=== PATIENT | female | born 1975 | race Two or more races ===

== ENCOUNTER → 2018-05-14 | Outpatient (CLI) | payer OTHER ==
[2018-05-14 13:51] LABS: ABSOLUTE BASOPHILS # (AUTO) 0.1 10^3/uL (0.0-0.2); ABSOLUTE EOSINOPHILS # (AUTO) 0.1 10^3/uL (0.0-0.6); ABSOLUTE LYMPHOCYTES (AUTO) 1.7 10^3/uL (0.5-4.7); ABSOLUTE MONOCYTES (AUTO) 0.4 10^3/uL (0.1-1.4); ABSOLUTE NEUT (AUTO) 7.9 10^3/uL (1.7-8.2); BASOPHILS % (AUTO) 0.8 % (0-2); EOSINOPHILS % (AUTO) 1.3 % (0-6); HEMATOCRIT 34.9 % (36.0-47.0); HEMOGLOBIN 12.8 g/dL (12.0-15.5); LYMPHOCYTES % (AUTO) 16.7 % (13-45); MEAN CORPUSCULAR HEMOGLOBIN 31.1 pg (27.0-33.4); MEAN CORPUSCULAR HGB CONC 36.6 g/dL (32.0-36.0); MEAN CORPUSCULAR VOLUME 85 fl (80-97); MONOCYTES % (AUTO) 3.5 % (3-13); PLATELET COUNT 220 10^3/uL (150-450); RED BLOOD COUNT 4.11 10^6/uL (3.72-5.28); RED CELL DISTRIBUTION WIDTH 15.7 % (11.5-14.0); SEGMENTED NEUTROPHILS % (AUTO) 77.7 % (42-78); TOTAL CELLS COUNTED % (AUTO) 100 %; WHITE BLOOD COUNT 10.2 10^3/uL (4.0-10.5)
[2018-05-14 14:16] LABS: ALANINE AMINOTRANSFERASE 40 U/L (9-52); ALBUMIN 4.6 g/dL (3.5-5.0); ALKALINE PHOSPHATASE 71 U/L (38-126); ANION GAP 12 (5-19); ASPARTATE AMINO TRANSFERASE 28 U/L (14-36); BILIRUBIN,DIRECT 1.3 mg/dL (0.0-0.4); BILIRUBIN,TOTAL 5.3 mg/dL (0.2-1.3); BLOOD UREA NITROGEN 7 mg/dL (7-20); CALCIUM 9.6 mg/dL (8.4-10.2); CARBON DIOXIDE 27 mmol/L (22-30); CHLORIDE 99 mmol/L (98-107); GLUCOSE 129 mg/dL (75-110); POTASSIUM 3.8 mmol/L (3.6-5.0); SODIUM 138.3 mmol/L (137-145); TOTAL PROTEIN 7.6 g/dL (6.3-8.2)
--- NOTE | 2018-05-14 15:09 | RADIOLOGY REPORT (SQ) ---
EXAM DESCRIPTION: U/S NON-OB PELVIS W/O DOP; U/S NON-OB PELVIS TV W/O DOP COMPLETED DATE/TIME: 05/14/2018 2:58 pm REASON FOR STUDY: LOWER ABD PAIN (R10.30) R10.30 LOWER ABDOMINAL PAIN, UNSPECIFIED COMPARISON: None. TECHNIQUE: Dynamic and static grayscale images acquired of the pelvis via transabdominal and transva ginal approach and recorded on PACS. Additional selected color Doppler and spectral images recorded. LIMITATIONS: None. FINDINGS: UTERUS: Multiple fibroids the largest 6 cm. ENDOMETRIAL STRIPE: Generalized thickening. CERVIX: Nabothian cyst. RIGHT OVARY AND DOPPLER: Normal size. No worrisome masses. Normal arterial vascular flow without evid ence for torsion. LEFT OVARY AND DOPPLER: Normal size. No worrisome masses. Normal arterial vascular flow without evid ence for torsion. FREE FLUID: None noted. OTHER: No other significant finding. MEASUREMENTS: UTERUS: 14.3 x 9.4 x 7.2 cm ENDOMETRIAL STRIPE: 22 mm RIGHT OVARY: 4.3 x 3.1 x 2.8 cm LEFT OVARY: 4.4 x 2.8 x 2.4 cm IMPRESSION: Enlarged fibroid uterus. TECHNICAL DOCUMENTATION: JOB ID: [id number] [employer]- All Rights Reserved Rev-12/27 Reading location - IP/workstation name: [email or web address]
--- NOTE | 2018-05-14 15:09 | RADIOLOGY REPORT (SQ) ---
EXAM DESCRIPTION: U/S NON-OB PELVIS W/O DOP; U/S NON-OB PELVIS TV W/O DOP COMPLETED DATE/TIME: 05/14/2018 2:58 pm REASON FOR STUDY: LOWER ABD PAIN (R10.30) R10.30 LOWER ABDOMINAL PAIN, UNSPECIFIED COMPARISON: None. TECHNIQUE: Dynamic and static grayscale images acquired of the pelvis via transabdominal and transva ginal approach and recorded on PACS. Additional selected color Doppler and spectral images recorded. LIMITATIONS: None. FINDINGS: UTERUS: Multiple fibroids the largest 6 cm. ENDOMETRIAL STRIPE: Generalized thickening. CERVIX: Nabothian cyst. RIGHT OVARY AND DOPPLER: Normal size. No worrisome masses. Normal arterial vascular flow without evid ence for torsion. LEFT OVARY AND DOPPLER: Normal size. No worrisome masses. Normal arterial vascular flow without evid ence for torsion. FREE FLUID: None noted. OTHER: No other significant finding. MEASUREMENTS: UTERUS: 14.3 x 9.4 x 7.2 cm ENDOMETRIAL STRIPE: 22 mm RIGHT OVARY: 4.3 x 3.1 x 2.8 cm LEFT OVARY: 4.4 x 2.8 x 2.4 cm IMPRESSION: Enlarged fibroid uterus. TECHNICAL DOCUMENTATION: JOB ID: [id number] [employer]- All Rights Reserved Rev-12/27 Reading location - IP/workstation name: [email or web address]
== END ==
LOC: RAD 13:19
PROVIDERS: ATTEND Nurse Practitioner Family
DX: D25.9 Leiomyoma of uterus, unspecified (principal); R10.30 Lower abdominal pain, unspecified
CPT/HCPCS: 36415; 76830; 76856; 80053; 85025

== ENCOUNTER 2018-08-14 05:20 | Inpatient (IN) | payer OTHER ==
[2018-08-13 10:09] LABS: APPEARANCE,URINE CLEAR; BILIRUBIN,URINE NEGATIVE (NEGATIVE); COLOR,URINE YELLOW; GLUCOSE, URINE NEGATIVE (NEGATIVE); KETONES,URINE NEGATIVE (NEGATIVE); LEUKOCYTE ESTERASE,URINE NEGATIVE (NEGATIVE); NITRITE,URINE NEGATIVE (NEGATIVE); PROTEIN,URINE NEGATIVE (NEGATIVE); URINE SPECIFIC GRAVITY 1.015; UROBILINOGEN,URINE NEGATIVE mg/dL (<2.0)
[2018-08-13 10:10] LABS: HEMATOCRIT 36.7 % (36.0-47.0); MEAN CORPUSCULAR HEMOGLOBIN 30.5 pg (27.0-33.4); MEAN CORPUSCULAR HGB CONC 35.6 g/dL (32.0-36.0); MEAN CORPUSCULAR VOLUME 86 fl (80-97); PLATELET COUNT 228 10^3/uL (150-450); RED BLOOD COUNT 4.28 10^6/uL (3.72-5.28); RED CELL DISTRIBUTION WIDTH 15.5 % (11.5-14.0); WHITE BLOOD COUNT 8.1 10^3/uL (4.0-10.5)
[2018-08-13 10:35] LABS: ALANINE AMINOTRANSFERASE 50 U/L (9-52); ALBUMIN 4.4 g/dL (3.5-5.0); ALKALINE PHOSPHATASE 69 U/L (38-126); ANION GAP 10 (5-19); ASPARTATE AMINO TRANSFERASE 44 U/L (14-36); BILIRUBIN,DIRECT 0.3 mg/dL (0.0-0.4); BLOOD UREA NITROGEN 12 mg/dL (7-20); CALCIUM 9.3 mg/dL (8.4-10.2); CARBON DIOXIDE 26 mmol/L (22-30); CHLORIDE 102 mmol/L (98-107); GLUCOSE 159 mg/dL (75-110); SODIUM 138.2 mmol/L (137-145); TOTAL PROTEIN 7.1 g/dL (6.3-8.2)
[~2018-08-14 05:20] MED LIST: CEFAZOLIN 1 GM/D5W RTU 1 GM/50 ML RTUPB IV PRN; LACTATED RINGERS 1000 ML IV PRN; LIDOCAINE 0.5% INJ-PF (5 MG/ML) 50 ML SDV SUBCUT PRN; MAGNESIUM CITRATE 296 ML BOTTLE PO ONE
[2018-08-14] MEDS ORDERED: CEFAZOLIN 1 GM/D5W RTU 1 GM/50 ML RTUPB IV ONE (05:30)
[2018-08-14] MEDS ORDERED: HYDROMORPHONE HCL INJ/PF 2 MG/ML AMPULE ONE (06:40)
[2018-08-14] MEDS ORDERED: PROPOFOL INJ 200 MG/20 ML VIAL IV ONE (06:41)
[2018-08-14] MEDS ORDERED: MIDAZOLAM 2 MG/2 ML INJ ONE (06:41)
[2018-08-14] MEDS ORDERED: FENTANYL CITRATE INJ/PF 100 MCG/2 ML AMPUL ONE (06:41)
[2018-08-14] MEDS ORDERED: ACETAMINOPHEN 0 MG/0 ML RTUPB IV ONE (06:41)
[2018-08-14] MEDS ORDERED: GLYCOPYRROLATE 1 MG/5 ML SYRINGE ONE (08:35)
[2018-08-14] MEDS ORDERED: NEOSTIGMINE METHYLSULFATE 10 MG/10 ML VIAL ONE (08:35)
[2018-08-14] MEDS ORDERED: ONDANSETRON HCL INJ/PF 4 MG/2 ML SDV ONE (08:35)
[2018-08-14] MEDS ORDERED: VECURONIUM BROMIDE INJ 10 MG VIAL IV ONE (08:35)
[2018-08-14] MEDS ORDERED: LIDOCAINE 2% INJ-PF (20 MG/ML) 2 ML AMPUL ONE (08:35)
[2018-08-14] MEDS ORDERED: SUCCINYLCHOLINE CHLORIDE INJ 200 MG/10 ML VIAL ONE (08:35)
[2018-08-14] MEDS ORDERED: DEXAMETHASONE SOD PHOSPHATE INJ 4 MG/1 ML VIAL ONE (08:35)
[2018-08-14] MEDS ORDERED: FENTANYL CITRATE INJ/PF 250 MCG/5 ML AMPULE ONE (08:50)
[2018-08-14] MEDS ORDERED: VASOPRESSIN INJ 20 UNIT/1 ML VIAL ONE (08:52)
[2018-08-14] MEDS ORDERED: MEPERIDINE HCL/PF INJ 25 MG/1 ML DISP.SYRIN IV PRN (09:18)
[2018-08-14] MEDS ORDERED: PROMETHAZINE HCL INJ 25 MG/1 ML VIAL IV PRN (09:18)
[2018-08-14] MEDS ORDERED: MORPHINE SULFATE 10 MG/ML INJ IV PRN ×2 (09:18→14:18)
[2018-08-14] MEDS ORDERED: DIPHENHYDRAMINE HCL 50 MG/ML VIAL IV PRN (09:18)
[2018-08-14] MEDS ORDERED: FENTANYL CITRATE INJ/PF 100 MCG/2 ML AMPUL IV PRN ×3 (09:18)
[2018-08-14] MEDS ORDERED: CEFAZOLIN INJ 1 GM VIAL ONE (10:29)
[2018-08-14] MEDS ORDERED: IBUPROFEN 800 MG in NORMAL SALINE 250 ML IV ONE (12:00)
[2018-08-14] MEDS ORDERED: PROMETHAZINE HCL INJ 25 MG/1 ML VIAL ONE (12:12)
[2018-08-14] MEDS ORDERED: IBUPROFEN 800 MG TABLET PO PRN (14:19)
--- NOTE | 2018-08-14 17:07 | OPERATIVE REPORT E ---
Operative Report NAME: SÁNCHEZ BARRAGAN : 1975 AGE: 42Y DATE OF SURGERY: 08/14/2018 ROOM: 225 PREOPERATIVE DIAGNOSES: 1. SYMPTOMATIC FIBROIDS. 2. ANEMIA. 3. ABNORMAL UTERINE BLEEDING AND PELVIC PAIN. POSTOPERATIVE DIAGNOSES: 1. SYMPTOMATIC FIBROIDS. 2. ANEMIA. 3. ABNORMAL UTERINE BLEEDING AND PELVIC PAIN. 4. APPARENT ENDOMETRIOSIS. 5. PELVIC ADHESIVE DISEASE. OPERATION: Total abdominal hysterectomy with left salpingo-oophorectomy and right salpingectomy and right ovarian cystectomy, and lysis of adhesions. SURGEON: LUCILLE CALIXTO M.D. MEMBER OF CONGRESS: JANETT DUBOIS M.D. ANESTHESIA: Robinson Maddox M.D. with general. FINDINGS: A 20 week uterus with multiple fibroids the largest being approximately 10 cm in posterior fundus of the uterus. Multiple smaller fibroids 2-3 cm each throughout the body of the uterus. A large 4 cm right ovarian cyst and a left ovary that was very well adhered to the posterior aspect of the uterus and had some adhesions to the bowel which were easily dissected with Metzenbaums and blunt dissection. Bladder was adhered high on the lower uterine segment. ESTIMATED BLOOD LOSS: 650 mL. SPECIMENS REMOVED: Uterus, cervix, bilateral fallopian tubes, left ovary, and right ovarian cyst. PROCEDURE IN DETAIL: The patient was taken to the operating, prepared and draped in the normal sterile fashion in the dorsal lithotomy position. Under sterile conditions a Sin catheter was placed to gravity, a speculum was then placed in the vagina, and the cervix was grasped on the anterior lip with a single tooth tenaculum. With some difficulty I was able to transect the cervix and place a VCare uterine manipulator as this patient, we were attempting a robotic assisted laparoscopic hysterectomy. Once this was completed the speculum was removed and gloves were changed and attention was turned to the upper portion of the case were a skin incision was made approximately 3.5 cm above the umbilicus to accommodate a GelPort. Through this incision I did introduce an Daniel morcellation bag with the thought that we would morcellate in the bag and remove through the umbilical skin incision. The GelPort was then placed with the trocars in place for the camera and insufflation. Once the abdomen was insufflated with approximately 2.5 liters of CO2 gas the patient was placed in Trendelenburg and the camera was introduced. The above findings were noted. I did place another 5 mm port in the left lower quadrant in an attempt to adequately assess the pelvis to determine if we could continue laparoscopically. Through this trocar I introduced a blunt probe and manipulated the bowel. Attempts to manipulate the uterus were unsuccessful as the uterus was just too heavy to manipulate with the uterine manipulator. I could not adequately assess the right adnexa at this time. The left adnexa I was able to ascertain that the left ovary was indeed adhered tightly to the posterior aspect of the uterus with what I am thinking is most likely endometriosis that had probably been there long-term. Both fallopian tubes did have a hydrosalpinx appearance that I was able to note, however, again I was not able to manipulate the uterus or the adnexa to be able to look at the right ovary at this point. I continued with assessment of the pelvis but at this point I felt that due to the size of the uterus and the significance of the adhesions to the lower uterine segment posteriorly to the bowel that it was not safe to continue with attempts for a laparoscopic case. Therefore, the decision was made to open. The patient was taken out of Trendelenburg. The legs were taken down and she was laid supine on the foot of the bed that had been put back together. I then began with a 10 blade and made the Pfannenstiel skin incision with the scalpel and went to the underlying layer fascia with the same scalpel. The fascia was excised in the midline, extended laterally with Garcia. The fascia was then dissected from the rectus muscle sharply using Garcia and Bovie as needed until I was able to adequately separate the rectus muscle. The rectus muscle was divided and the peritoneal cavity was then entered sharply using 2 hemostats and a Metzenbaum scissor. The peritoneum was then divided and extended inferiorly and superiorly sharply with Metzenbaums. A Jeff uterine retractor was placed and the bowel was packed away with moist laparotomy sponges. The uterus was somewhat mobilized with some difficulty through the uterine incision. Dr. Dubois at this point visited in the OR and I invited her to scrub-in in order to have a second pair of hands due to the unwieldy nature of the uterus. At this time I was able to assess the right adnexa more adequately and did find that the right ovary had a very large 4-5 cm cyst on it, that I think the ultrasound in the office had mistaken for a fibroid in the broad ligament, but indeed it was an ovarian cyst. The patient had desired conservation of her right ovary and removal of the left, therefore, I did make the decision to do an ovarian cystectomy and Dr. Dubois and I tied off the round ligaments with O Vicryl and tagged these with hemostats. We then turned our attention back to the ovary and we scored it with a 15 blade scalpel and dissected the cyst out of the ovary with blunt dissection using hemostats and Metzenbaums as needed for sharp dissection until the cyst was free and I was able to amputate underneath it. The cyst did come out intact. There was still a smaller cyst of clear yellowish fluid prior to the excision of this larger cyst. The ovary was then reapproximated and a piece of Surgicel was placed in the defect for hemostasis and his was reapproximated with 3-0 Vicryl in a running stitch x3 different sites. Attention was then turned to the fibroid which was obscuring visualization significantly. Therefore, the decision was made to perform a myomectomy first. The fibroid was injected with approximately 10 mL of lidocaine with a vasopressin and the serosa was then scored using a 15 blade and the fibroid was shelled out using blunt dissection with hemostats and sharp dissection with Metzenbaums as needed until the fibroid was able to be peeled out of the uterine defect. The uterus was then grasped at the fundus using a double tooth tenaculum for uterine manipulation. I then began with transection of the round ligaments bilaterally using the LigaSure and I created the bladder flap sharply with Metzenbaums and blunt dissection with a sponge stick until the bladder was felt to be better away from the lower uterine segment. I then removed the right fallopian tube using the LigaSure and I removed the left fallopian tube using the LigaSure. There was some difficulty with removal of the left ovary but I was able to. After manipulating the uterus more and compressing the fundus with the tenaculums again I was able to get underneath the left ovary at the IP ligament and this was transected using the LigaSure until the ovary was freed and removed from the field. I then continued with transection and ligation using the LigaSure bilaterally on the uterine artery down to the level of the internal cervical os. At this point we amputated the uterus in order to be able to visualize the cervix better. The cervix was gasped at the superior aspect using Cobra clamps and the rest of the uterine artery was transected and ligated with the LigaSure until we were able to palpate underneath uterus. Two sharply curved Nadine clamps were then placed bilaterally and the cervix was then amputated using Cortes. The vaginal cuff was then closed at both angles using 2-0 Vicryl and the rest of the vaginal cuff was closed using interrupted 2-0 Vicryl [id number] sutures. We then finished closure of the ovarian tissue as there was one defect still noted and this was closed again with the 3-0 Vicryl and then I used 2-0 Vicryl to attach the right ovary to the right round ligament to fixate it in place and hopefully prevent prolapse of the right ovary onto the vaginal cuff. The abdomen was then copiously irrigated using sterile water and there was no further bleeding noted. The retractor was removed. The sponges were removed from the abdomen. The Daniel morcellator bag was also removed. At this point we did a sponge count and it was correct at this time. The rectus muscle and peritoneum were reapproximated with interrupted sutures of 2-0 Chromic. The fascia was closed with 0 Vicryl. The subcutaneous layer was closed with plain catgut. The skin was closed with 4-0 Vicryl. I then closed the fascia layer at the GelPort site using 0 Vicryl as well and the skin was closed with 4-0 Vicryl at the upper 2 sites at this time. The patient tolerated this procedure well. Sponge, lap, and needle counts were correct x2 and the patient was taken to recovery in stable condition. DICTATING PHYSICIAN: LUCILLE CALIXTO M.D. [id number] PHY#: [id number] ID: [id number] JOB#: [id number] ACCT: [id number] cc:LUCILLE CALIXTO M.D. >
[2018-08-14] MEDS: IBUPROFEN 800 MG in NORMAL SALINE 250 ML IV SCH (18:37)
[2018-08-14] MEDS: OXYCODONE HCL IR 5 MG TABLET PO PRN (21:00)
[2018-08-15] MEDS: RINGERS SOLUTION,LACTATED 1,000 ML IV PRN (01:20)
[2018-08-15] MEDS: IBUPROFEN 800 MG in NORMAL SALINE 250 ML IV SCH ×3 (01:20→18:02)
[2018-08-15] MEDS: OXYCODONE HCL IR 5 MG TABLET PO PRN ×4 (03:46→20:43)
[2018-08-15 07:05] LABS: HEMATOCRIT 24.9 % (36.0-47.0); MEAN CORPUSCULAR HEMOGLOBIN 30.9 pg (27.0-33.4); MEAN CORPUSCULAR HGB CONC 35.7 g/dL (32.0-36.0); MEAN CORPUSCULAR VOLUME 86 fl (80-97); PLATELET COUNT 188 10^3/uL (150-450); RED BLOOD COUNT 2.88 10^6/uL (3.72-5.28); RED CELL DISTRIBUTION WIDTH 15.3 % (11.5-14.0); WHITE BLOOD COUNT 7.7 10^3/uL (4.0-10.5)
[2018-08-15 07:07] LABS: HEMOGLOBIN 8.9 g/dL (12.0-15.5)
[2018-08-15] MEDS ORDERED: SIMETHICONE 80 MG TAB.CHEW PO PRN (12:06)
[2018-08-15] MEDS ORDERED: MAGNESIUM HYDROXIDE SUSP 30 ML UDCUP PO PRN (12:06)
--- NOTE | 2018-08-15 12:06 | PDOC PROGRESS REPORT ---
Subjective Progress Note for:: 08/15/18 Reason For Visit: MISTY w/ LSO and right ovarian cystectomy. doing well Physical Exam - Physical Exam Vital Signs: Temp Pulse Resp BP Pulse Ox 98.0 F 99 18 135/78 H 95 08/15/18 10:59 08/15/18 10:59 08/15/18 10:59 08/15/18 10:59 08/15/18 10:59 Intake & Output 08/14/18 08/15/18 08/16/18 06:59 06:59 06:59 Intake Total 0 5071 Output Total 2650 1100 Balance 0 2421 -1100 Weight 90.72 kg General appearance: PRESENT: no acute distress, cooperative - incision c/d/intact Result Laboratory Results: 08/15/18 06:52 08/13/18 09:28 08/15/18 06:52 WBC 7.7 RBC 2.88 L Hgb 8.9 L D Hct 24.9 L MCV 86 MCH 30.9 MCHC 35.7 RDW 15.3 H Plt Count 188 Assessment & Plan - Diagnosis (1) Anemia Qualifiers: Anemia type: iron deficiency Is this a current diagnosis for this admission?: Yes (2) Fibroids, intramural Is this a current diagnosis for this admission?: Yes (3) Fibroids, submucosal Is this a current diagnosis for this admission?: Yes (4) Fibroids, subserous Is this a current diagnosis for this admission?: Yes (5) Pelvic pain Is this a current diagnosis for this admission?: Yes (6) Right ovarian cyst Is this a current diagnosis for this admission?: Yes (7) Pelvic adhesive disease Is this a current diagnosis for this admission?: Yes - Time Time Spent with patient: Less than 15 minutes Anticipated discharge: Home Within: within 24 hours - Inpatient Certification Based on my medical assessment, after consideration of the patient's comorbidities, presenting symptoms, or acuity I expect that the services needed warrant INPATIENT care.: Yes I certify that my determination is in accordance with my understanding of Medicare's requirements for reasonable and necessary INPATIENT services [42 CFR 412.3e].: Yes Medical Necessity: Need for Pain Control - Plan Summary Plan Summary: continue post operative care and anticipate discharge in AM
[2018-08-15] MEDS ORDERED: DOCUSATE SODIUM 100 MG CAPSULE PO SCH (18:00)
[2018-08-16] MEDS: RINGERS SOLUTION,LACTATED 1,000 ML IV PRN ×2 (01:17→07:38)
[2018-08-16] MEDS: IBUPROFEN 800 MG in NORMAL SALINE 250 ML IV SCH (01:17)
--- NOTE | 2018-08-16 08:29 | PDOC DISCHARGE SUMMARY ---
General - Admit/Disc Date/PCP Admission Date/Primary Care Provider: 08/14/18 05:30 LORETTA JAUREGUI MD Discharge Date: 08/16/18 - Discharge Diagnosis (1) Anemia Is this a current diagnosis for this admission?: Yes (2) Fibroids, intramural Is this a current diagnosis for this admission?: Yes (3) Fibroids, submucosal Is this a current diagnosis for this admission?: Yes (4) Fibroids, subserous Is this a current diagnosis for this admission?: Yes (5) Pelvic adhesive disease Is this a current diagnosis for this admission?: Yes (6) Pelvic pain Is this a current diagnosis for this admission?: Yes (7) Right ovarian cyst Is this a current diagnosis for this admission?: Yes - Additional Information Home Medications: No Home Medications 08/01/18 History of Present Illness History of Present Illness: SÁNCHEZ BARRAGAN is a 42 year old female Hospital Course Hospital Course: Admitted 08/14/18 to undergo robotic hysterectomy which was converted to MISTY. See dictated op note for details. Pt has done well postoperatively. H/H decreased from 13 to 8. On day of discharge, she was voiding, passing flatus, ambulating with assistance, tolerating a regular diet. Physical Exam - Physical Exam Vital Signs: Temp Pulse Resp BP Pulse Ox 99.8 F 95 16 125/59 L 97 08/16/18 00:02 08/16/18 00:02 08/16/18 00:02 08/16/18 00:02 08/16/18 00:02 Intake & Output 08/15/18 08/16/18 08/17/18 06:59 06:59 06:59 Intake Total 5006 1750 794 Output Total 2650 2900 Balance 2421 -1150 794 Weight 90.3 kg General appearance: PRESENT: no acute distress, cooperative, obese, well- developed, well-nourished Head exam: PRESENT: atraumatic, normocephalic Respiratory exam: PRESENT: clear to auscultation sandra Cardiovascular exam: PRESENT: RRR GI/Abdominal exam: PRESENT: normal bowel sounds, soft, other - appropriately tender, non-distended. Incision c/d/i Psychiatric exam: PRESENT: appropriate affect Result Laboratory Results: 08/15/18 06:52 08/13/18 09:28 Plan Discharge Plan: Pelvic rest x 6wks. Avoid heavy lifting or strenuous exercise. Regular diet. F/u with Dr. Pitts within the week for incision check. Time Spent: Less than 30 Minutes
[2018-08-16 12:07] VITALS: BP 143/99
== END 2018-08-16 13:20 | disposition home or self-care (01) | DRG 740 ==
LOC: OROUT 05:20 → 2S 05:30
PROVIDERS: ADMIT Obstetrics & Gynecology; ATTEND Obstetrics & Gynecology
PROC: 0UB00ZZ Excision of Right Ovary, Open Approach (ICD-10-PCS; 2018-08-14)
PROC: 0UT10ZZ Resection of Left Ovary, Open Approach (ICD-10-PCS; 2018-08-14)
PROC: 0UT70ZZ Resection of Bilateral Fallopian Tubes, Open Approach (ICD-10-PCS; 2018-08-14)
PROC: 0UTC0ZZ Resection of Cervix, Open Approach (ICD-10-PCS; 2018-08-14)
PROC: 8E0W4CZ Robotic Assisted Procedure of Trunk Region, Percutaneous Endoscopic Approach (ICD-10-PCS; 2018-08-14)
PROC: 0UT90ZZ Resection of Uterus, Open Approach (ICD-10-PCS; principal; 2018-08-14 07:30)
DX: C54.1 Malignant neoplasm of endometrium (principal); Z68.41 Body mass index [BMI] 40.0-44.9, adult; E66.9 Obesity, unspecified; D25.0 Submucous leiomyoma of uterus; D25.2 Subserosal leiomyoma of uterus; N92.0 Excessive and frequent menstruation with regular cycle; N93.9 Abnormal uterine and vaginal bleeding, unspecified; I10 Essential (primary) hypertension; N80.0 Endometriosis of uterus; Z53.31 Laparoscopic surgical procedure converted to open procedure; N83.201 Unspecified ovarian cyst, right side; D50.9 Iron deficiency anemia, unspecified
CPT/HCPCS: 36415; 80053; 81001; 81025; 82962; 840; 84703; 85027; 86850; 86900; 86901; 88305; 88309; J0131; J0330; J0690; J1100; J1170; J1741; J2250; J2405; J2550; J2704; J3010; J3490; J7050; J7120

== ENCOUNTER → 2018-12-18 | Outpatient (CLI) | payer OTHER ==
--- NOTE | 2018-12-18 09:24 | RADIOLOGY REPORT (SQ) ---
EXAM DESCRIPTION: FOOT RIGHT COMPLETE COMPLETED DATE/TIME: 12/18/2018 8:03 am REASON FOR STUDY: PAIN IN RIGHT FOOT M79.671 PAIN IN RIGHT FOOT COMPARISON: None. NUMBER OF VIEWS: Three views. TECHNIQUE: AP, lateral and oblique radiographic images acquired of the right foot. LIMITATIONS: None. FINDINGS: MINERALIZATION: Normal. BONES: Plantar calcaneal bone spur. Degenerative change talonavicular joint. No fractures seen. JOINTS: No effusions. SOFT TISSUES: There is suggestion of minimal soft tissue thickening adjacent to 5th metatarsal. OTHER: No other significant finding. IMPRESSION: Plantar calcaneal bone spur. Otherwise, normal right foot. TECHNICAL DOCUMENTATION: JOB ID: [id number] [employer]- All Rights Reserved Reading location - IP/workstation name: [email or web address]
== END ==
LOC: OD 07:51
PROVIDERS: ATTEND Nurse Practitioner Acute Care
DX: M79.671 Pain in right foot (principal)

== ENCOUNTER → 2019-01-12 | Outpatient (CLI) | payer OTHER ==
--- NOTE | 2019-01-14 16:00 | WOMENS IMAGING REPORT ---
EXAM DESCRIPTION: BILAT SCREENING MAMMO W/CAD COMPLETED DATE/TIME: 01/12/2019 1:14 pm REASON FOR STUDY: Z12.31 ROUTINE BILATERAL SCREENING Z12.31 ENCNTR SCREEN MAMMOGRAM FOR MALIGNANT N EOPLASM OF BASSAM COMPARISON: 07/18/2017. EXAM PARAMETERS: Standard craniocaudal and mediolateral oblique views of each breast recorded using digital acquisition. Read with the assistance of CAD. .[facility] - [employer] Server Version 9.2 LIMITATIONS: None. FINDINGS: Findings present which are benign by mammographic criteria. No suspicious masses, calcifi cations or architectural distortion. Pertinent benign findings: Stable benign punctate calcifications in both breasts. Benign mammographic findings may include one or more of the following: Smooth masses, popcorn/rim/co arse calcifications, asymmetries, post-procedure changes, and lesions with long-standing stability. IMPRESSION: ASSESSMENT: BENIGN MAMMOGRAPHIC FINDINGS. BIRADS 2 BREAST DENSITY: c. The breasts are heterogeneously dense, which may obscure small masses. BIRAD: 2 BENIGN FINDING(S) RECOMMENDATION: ROUTINE SCREENING COMMENT: The patient has been notified of the results by letter per [place] requirements. Additional no tification policies are in place for contacting patient with suspicious or incomplete findings. Quality ID #225: The [employer] recommends an annual screening mammogram for women aged 40 years or over. This facility utilizes a reminder system to ensure that all patients receive reminder letters, and/or direct phone calls for appointments. This includes reminders for routine scr eening mammograms, diagnostic mammograms, or other Breast Imaging Interventions when appropriate. Th is patient will be placed in the appropriate reminder system. TECHNICAL DOCUMENTATION: FINDING NUMBER: (1) ASSESSMENT: (1) JOB ID: [id number] [employer]- All Rights Reserved Reading location - IP/workstation name: [email or web address]
== END ==
LOC: WI 10:42
PROVIDERS: ATTEND Obstetrics & Gynecology
DX: Z12.31 Encounter for screening mammogram for malignant neoplasm of breast (principal)
CPT/HCPCS: 77067

== ENCOUNTER → 2020-01-21 | Outpatient (CLI) | payer OTHER ==
--- NOTE | 2020-01-21 12:09 | RADIOLOGY REPORT (SQ) ---
EXAM DESCRIPTION: ANKLE LEFT COMPLETE IMAGES COMPLETED DATE/TIME: 01/21/2020 8:38 am REASON FOR STUDY: ACUTE LEFT ANKLE PAIN M25.572 PAIN IN LEFT ANKLE AND JOINTS OF LEFT FOOT COMPARISON: None. NUMBER OF VIEWS: Three views. TECHNIQUE: AP, lateral, and oblique radiographic images acquired of the left ankle. LIMITATIONS: None. FINDINGS: MINERALIZATION: Normal. BONES: No acute fracture or dislocation. No worrisome bone lesions. JOINTS: No effusions. SOFT TISSUES: No soft tissue swelling. No foreign body. OTHER: No other significant finding. IMPRESSION: NEGATIVE STUDY OF THE LEFT ANKLE. NO RADIOGRAPHIC EVIDENCE OF ACUTE INJURY. TECHNICAL DOCUMENTATION: JOB ID: [id number] 2010 [employer]- All Rights Reserved Reading location - IP/workstation name: [email or web address]
== END ==
LOC: OD 09:21
PROVIDERS: ATTEND Nurse Practitioner Family
DX: M25.572 Pain in left ankle and joints of left foot (principal)

== ENCOUNTER → 2020-02-04 | Outpatient (CLI) | payer OTHER ==
--- NOTE | 2020-02-04 15:06 | WOMENS IMAGING REPORT ---
EXAM DESCRIPTION: BILAT SCREENING MAMMO W/CAD IMAGES COMPLETED DATE/TIME: 02/04/2020 1:07 pm REASON FOR STUDY: Z12.31 ENCOUNTER FOR SCREENING MAMMOGRAM FOR MALIGNANT NEOPLASM OF BREAST Z12.31 ENCNTR SCREEN MAMMOGRAM FOR MALIGNANT NEOPLASM OF BASSAM COMPARISON: 01/12/2019 EXAM PARAMETERS: Standard craniocaudal and mediolateral oblique views of each breast recorded using digital acquisition. . Read with the assistance of CAD. .[facility] - [employer] Version 2.4 LIMITATIONS: None. FINDINGS: Findings present which are benign by mammographic criteria. No suspicious masses, calcifi cations or architectural distortion. Pertinent benign findings: Scattered benign calcifications are stable. Benign mammographic findings may include one or more of the following: Smooth masses, popcorn/rim/co arse calcifications, asymmetries, post-procedure changes, and lesions with long-standing stability. IMPRESSION: BENIGN MAMMOGRAPHIC FINDINGS. BIRADS 2 BREAST DENSITY: c. The breasts are heterogeneously dense, which may obscure small masses. BIRAD: ASSESSMENT: 2 BENIGN FINDING(S) RECOMMENDATION: ROUTINE SCREENING COMMENT: The patient has been notified of the results by letter per MQSA requirements. Additional no tification policies are in place for contacting patient with suspicious or incomplete findings. Quality ID #225: The [employer] [place] [employer] recommends an annual screening mammogram for women aged 40 years or over. This facility utilizes a reminder system to ensure that all patients receive reminder letters, and/or direct phone calls for appointments. This includes reminders for routine scr eening mammograms, diagnostic mammograms, or other Breast Imaging Interventions when appropriate. Th is patient will be placed in the appropriate reminder system. TECHNICAL DOCUMENTATION: FINDING NUMBER: (1) ASSESSMENT: (1) JOB ID: [id number] 2010 [employer]- All Rights Reserved Reading location - IP/workstation name: [email or web address]
== END ==
LOC: WI 13:15
PROVIDERS: ATTEND Obstetrics & Gynecology
DX: Z12.31 Encounter for screening mammogram for malignant neoplasm of breast (principal)
CPT/HCPCS: 77067